=== PATIENT | male | born 1960 | race Caucasian/White ===

== ENCOUNTER 2020-08-23 14:11 | Emergency (ER) | payer OTHER ==
[2020-08-23] MEDS ORDERED: Acetaminophen 500 MG TAB ONE (15:11)
[2020-08-23 15:28] LABS: ALT (SGPT) 40 U/L (8-55); AST (SGOT) 40 U/L (5-34); Albumin 4.2 g/dL (3.4-4.8); Alkaline Phosphatase 70 U/L (40-110); Anion Gap 15 mmol/L (10-20); BUN (Urea Nitrogen) 18 mg/dL (8.4-25.7); Bilirubin, Total 0.8 mg/dL (0.2-1.2); Calc. Creatinine Clearance 0 mL/min (70-130); Calcium 8.8 mg/dL (7.8-10.44); Carbon Dioxide 25 mmol/L (23-31); Chloride 104 mmol/L (98-107); Globulin 3.5 g/dL (2.4-3.5); Glucose 201 mg/dL (80-115); Potassium 4.2 mmol/L (3.5-5.1); Protein, Total 7.7 g/dL (5.8-8.1); Sodium 140 mmol/L (136-145)
[2020-08-23 15:32] LABS: #Lymphocytes 0.7 thou/uL (1.20-3.40); #Monocytes 0.3 thou/uL (0.11-0.59); #Neutrophils 4.2 thou/uL (1.40-6.50); %Basophils 0.4 % (0.0-1.0); %Lymphocytes 13.7 % (21.0-51.0); %Monocytes 6.2 % (0.0-10.0); %Neutrophils 79.7 % (42.0-75.0); MDiff Complete? YES; Mean Corpuscular HGB CONC 33.8 g/dL (32.0-36.0); Mean Corpuscular Hemoglobin 30.1 pg (27.0-31.0); Mean Corpuscular Volume 89.2 fL (78.0-98.0); Mean Platelet Volume 7.2 fL (7.4-10.4); Platelet Count 103 thou/uL (130-400); Platelet Morphology Comment Appears Decreased; RBC Distribution Width 12.5 % (11.5-14.5); Red Blood Cell (RBC) Count 5.63 mill/uL (4.70-6.10); Schistocytes SLIGHT = 2-5 cells (100X) (0-1/hpf); White Blood Cell (WBC) Count 5.2 thou/uL (4.8-10.8)
[2020-08-23] MEDS ORDERED: Aspirin Chewable 81 MG TAB ONE (16:17)
[2020-08-23] MEDS ORDERED: cefTRIAXone\\ROCEPHIN 1 GM VIAL ONE (16:17)
[2020-08-23] MEDS ORDERED: Dexamethasone 4 mg/ml Vial ONE (16:17)
--- NOTE | 2020-08-23 16:22 | RAD ---
PORTABLE CHEST: 08/23/20 An AP portable film at 1502 is compared with the prior study of 01/30/14 from [facility]. The heart is normal in size. There is no vascular congestion, edema, or pleural effusion. While there is no major lobar infiltrate, there is a bit of linear streaking lateral to the right hilum and pote ntially just below it. I cannot exclude a minimal early infiltrate here. The left lung is relatively clear. IMPRESSION: Minimal infiltrate in the vicinity of the right hilum. POS: HOME
[2020-08-23 17:52] LABS: SARS-CoV-2 NAA Rapid Test DETECTED (NotDetected)
== END 2020-08-23 17:55 | disposition short-term general hospital (02) ==
LOC: BURERS 14:11
DX: J18.9 Pneumonia, unspecified organism (principal); Z20.828 Contact with and (suspected) exposure to other viral communicable diseases; M10.9 Gout, unspecified; I10 Essential (primary) hypertension; F17.220 Nicotine dependence, chewing tobacco, uncomplicated
CPT/HCPCS: 0240U; 36415; 71045; 80053; 83605; 83880; 84484; 85025; 87040; 93005; 94760; 96374; 96375; J0696; J1100